=== PATIENT | male | born 1965 | race Caucasian/White ===

== ENCOUNTER 2019-12-21 05:23 | Emergency (ER) | payer SELFPAY ==
--- NOTE | 2019-12-21 05:36 | ED.SOB ---
HPI - SOB/Dyspnea General Chief Complaint: Dyspnea Stated Complaint: SOB Time Seen by Provider: 12/21/19 05:35 Source: patient Mode of arrival: ambulatory Limitations: other (vague historian) History of Present Illness MD elicited complaint: shortness of breath Onset (ago): day(s) (2) Context: other (states he is upset with his , having coughing fit, just had test at [facility] for COVID still pending) Timing: intermittent Severity: mild Exacerbating factors: exertion Relieving factors: nothing Associated symptoms: cough and other (fatigue) Treatment prior to arrival: none Related Data Previous Rx's Medication Instructions Recorded azithromycin See Rx Instructions .ROUTE 12/21/19 .COMPLEX #6 tab Allergies Allergy/AdvReac Type Severity Reaction Status Date / Time lactose [Lactose] AdvReac Mild UPSET Unverified 11/08/19 15:10 STOMACH Review of Systems Review of Systems: Constitutional : No Fever, No Chills ENT/Mouth : No sore throat, No Rhinorrhea, No Swallowing Difficulty Eyes: No Eye Pain, No Swelling, No Redness Cardiovascular : No Chest Pain, positive SOB, No Orthopnea, no Edema Respiratory : pos Cough, No Sputum, No Wheezing, positive dyspnea Gastrointestinal : No Nausea, No Vomiting, No Diarrhea, No abdominal Pain, No Hematochezia, No Melena Genitourinary : No Dysuria, No Urinary Frequency, No Hematuria Musculoskeletal : No joint pain, No Myalgias Skin : No Skin Lesions, No rash Neuro : No Weakness, No Numbness, No Dizziness, No Headache Psych : No Anxiety/Panic, No Depression Heme/Lymph: No Bruising, No Lymphadenopathy Endocrine : No Polyuria, No Polydipsia All other systems reviewed and are negative [facility] Past Medical History Medical History No active medical problems Social History Social History (Updated 12/21/19 @ 05:39 by Jannie Flowers DO) Alcohol intake: never Smoking Status: Never smoker Advance Directives: No Advance Directives Information Provided: No Physical Exam Vital Signs: Vital Signs: Vital Signs Temp Pulse Resp BP Pulse Ox 12/21/19 06:59 95 12/21/19 05:37 99.0 F 106 H 22 H 124/100 H 95 Body Mass Index 34.0 Appearance: Alert. Oriented X3. No acute distress. Anxious rocking back and forth, poor eye contact Eyes: Pupils equal, round and reactive to light. ENT: Pharynx normal. Neck: Normal inspection. Neck supple. CVS: Normal heart rate and rhythm. Pulses normal. Respiratory: No respiratory distress. Breath sounds normal. Dry intermittent cough Abdomen: Soft and nontender. Skin: Skin warm and dry. Normal skin color. Normal skin turgor. Extremities: No lower extremity edema. No calf ttp Neuro: Oriented X 3. No motor deficit. No sensory deficit. Course Course Course Narrative: no hypoxia, no resp distress likely COVID given labs and CXR, has INH in hand, 95% on RA MDM - SOB/Dyspnea MDM Narrative Medical decision making narrative: 54 yo male with cough x 2 days states he is upset with his who wants him to have COVID so he can't be in the house, c/o dyspnea x 2 days, at this time will need EKG, CXR, COVID swab, no chest pain, no edema, very limited exam, states he is anxious as well due to the argument he had [employer]. Lab Data Result diagrams: 12/21/19 05:54 12/21/19 05:54 Labs: Lab Results 12/21/19 12/21/19 12/21/19 Range/Units 05:54 05:54 05:54 WBC 3.7 L (4.8-10.8) X10*3/uL RBC 4.77 (4.60-5.80) X10*6/uL Hgb 14.6 (14.0-18.0) g/dl Hct 43.1 (42-52) % MCV 90.4 (80-98) fL MCH 30.6 (27.0-33.0) pg MCHC 33.9 (31.0-36.0) g/dl RDW 11.3 (11.0-16.0) % Plt Count 320 (160-400) X10*3/uL MPV 9.7 (9.4-12.4) fL Immature Gran % (Auto) 0.3 (0.0-0.4) % Neut % (Auto) 62.4 (45-73) % Lymph % (Auto) 27.2 (20-40) % [place] % (Auto) 9.8 (2-11) % Eos % (Auto) 0.3 (0-4) % Baso % (Auto) 0.0 (0-2) % Lymph # (Auto) 1.0 L (1.2-4.9) X10*3/uL [place] # (Auto) 0.4 (0.1-1.2) X10*3/uL Eos # (Auto) 0.0 (0.0-0.4) X10*3/uL Baso # (Auto) 0.0 (0.0-0.2) X10*3/uL Abs Immat Gran (auto) 0.01 (0.00-0.03) X10*3/uL Absolute Neuts (auto) 2.3 (2.0-8.3) X10*3/uL Absolute Nucleated RBC 0.000 (0.0-0.012) X10*3/uL Nucleated RBC % (auto) 0.0 (0.0-0.2) /100WBC Hold Blue Top SEE NOTE Sodium 134 L (135-145) mmol/L Potassium 3.9 (3.3-5.1) mmol/l Chloride 99 (96-108) mmol/L Carbon Dioxide 24 (22-29) mmol/L Anion Gap 15 (12-20) BUN 5 L (9-16) mg/dL Creatinine 0.78 (0.5-1.4) mg/dL Estim Creat Clear Calc 130.3 Estimated GFR > 60 Random Glucose 296 H (60-115) mg/dL Calcium 8.4 (8.4-10.2) mg/dL Troponin I High Sens (<3.5-35.0) ng/L B-Natriuretic Peptide (<100) pg/mL 12/21/19 Range/Units 05:54 WBC (4.8-10.8) X10*3/uL RBC (4.60-5.80) X10*6/uL Hgb (14.0-18.0) g/dl Hct (42-52) % MCV (80-98) fL MCH (27.0-33.0) pg MCHC (31.0-36.0) g/dl RDW (11.0-16.0) % Plt Count (160-400) X10*3/uL MPV (9.4-12.4) fL Immature Gran % (Auto) (0.0-0.4) % Neut % (Auto) (45-73) % Lymph % (Auto) (20-40) % [place] % (Auto) (2-11) % Eos % (Auto) (0-4) % Baso % (Auto) (0-2) % Lymph # (Auto) (1.2-4.9) X10*3/uL [place] # (Auto) (0.1-1.2) X10*3/uL Eos # (Auto) (0.0-0.4) X10*3/uL Baso # (Auto) (0.0-0.2) X10*3/uL Abs Immat Gran (auto) (0.00-0.03) X10*3/uL Absolute Neuts (auto) (2.0-8.3) X10*3/uL Absolute Nucleated RBC (0.0-0.012) X10*3/uL Nucleated RBC % (auto) (0.0-0.2) /100WBC Hold Blue Top Sodium (135-145) mmol/L Potassium (3.3-5.1) mmol/l Chloride (96-108) mmol/L Carbon Dioxide (22-29) mmol/L Anion Gap (12-20) BUN (9-16) mg/dL Creatinine (0.5-1.4) mg/dL Estim Creat Clear Calc Estimated GFR Random Glucose (60-115) mg/dL Calcium (8.4-10.2) mg/dL Troponin I High Sens < 3.5 (<3.5-35.0) ng/L B-Natriuretic Peptide < 10 (<100) pg/mL ECG Data Attestation: I personally reviewed and interpreted this ECG as follows: ECG interpretation date: 12/21/19 ECG interpretation time: 06:00 Interpretation: Rate:92 Rhythm: NSR [place]: left Normal P waves. Normal LYNDSEY. Normal QRS complex. ST T wave : normal qTC: normal prior studies: no acute ischemia The study has been interpreted contemporaneously by me. . Discharge Plan Discharge Clinical Impression: Viral pneumonia Patient Disposition: Home, Self-Care Instructions: COVID-19 (Coronavirus Disease 2019) (ED) Additional Instructions: if you cannot walk to your bathroom because you're short of breath please return. you can use the inhaler 2 puffs every 4 hours as needed for cough/dyspnea Prescriptions: New azithromycin 500 mg tablet See Rx Instructions .ROUTE .COMPLEX Qty: 6 RF: 0 Referrals: Physician,ED [Physician] - 2 days (if you are short of breath and cannot breathe well please return) Stand Alone Forms: Work/School Release
[2019-12-21 05:37] VITALS: BP 124/100; PULSE 106; RESP 22; TEMP 37.2; O2SAT 95; BMI 34.0
--- NOTE | 2019-12-21 06:02 | XR_ITS ---
EXAMINATION: XR CHEST CLINICAL INFORMATION: Dyspnea COMPARISON: None TECHNIQUE: Frontal view of the chest was obtained. FINDINGS: Cardiac leads overlie the chest. The lungs are well expanded. Diffuse bronchial wall thickening. Minimal peripheral patchy opacity on the right. No pleural effusion or pneumothorax. The cardiomediastinal silhouette is within normal limits. XR/XR chest 1V IMPRESSION: Bronchial wall thickening with peripheral patchy opacity is suspicious for infectious or inflammatory process. Consideration should be given to viral pneumonia.
[2019-12-21 06:05] LABS: Eosinophils Percent Auto 0.3 % (0-4); Hematocrit 43.1 % (42-52); Hemoglobin 14.6 g/dl (14.0-18.0); Imm Gran Abs Auto 0.01 X10*3/uL (0.00-0.03); Imm Gran Pct Auto 0.3 % (0.0-0.4); Lymphocytes Percent Auto 27.2 % (20-40); MANUAL DIFF FLAG NO; Mean Corpuscular HGB Conc 33.9 g/dl (31.0-36.0); Mean Corpuscular Hemoglobin 30.6 pg (27.0-33.0); Mean Corpuscular Volume 90.4 fL (80-98); Mean Platelet Volume 9.7 fL (9.4-12.4); Monocytes Absolute Auto 0.4 X10*3/uL (0.1-1.2); Monocytes Percent Auto 9.8 % (2-11); Neutrophils Absolute Auto 2.3 X10*3/uL (2.0-8.3); Neutrophils Percent Auto 62.4 % (45-73); Platelet Count 320 X10*3/uL (160-400); Red Blood Count 4.77 X10*6/uL (4.60-5.80); Red Cell Distribution Width 11.3 % (11.0-16.0); White Blood Count 3.7 X10*3/uL (4.8-10.8)
[2019-12-21] MEDS: Albuterol Sulfate 90 MCG 8 GM INHALER 2 PUFF INHALE (06:09)
[2019-12-21 06:33] LABS: Anion Gap 15 (12-20); Blood Urea Nitrogen 5 mg/dL (9-16); Calcium 8.4 mg/dL (8.4-10.2); Carbon Dioxide 24 mmol/L (22-29); Chloride 99 mmol/L (96-108); Creatinine Clr Calc Pharmacy 130.3; Estimated Glomerular Filt Rate > 60; Glucose Random 296 mg/dL (60-115); Potassium 3.9 mmol/l (3.3-5.1); Sodium 134 mmol/L (135-145)
[2019-12-21 06:39] LABS: B Type Natriuretic Peptide < 10 pg/mL (<100); Troponin-I High Sensitivity < 3.5 ng/L (<3.5-35.0)
--- NOTE | 2019-12-21 06:48 | PC.NURSE ---
PT RESTING IN BED AWAITING RESULTS. NO DISTRESS NOTED. AWARE OF PLAN OF CARE.
[2019-12-21 06:59] VITALS: O2SAT 95
== END 2019-12-21 08:07 | disposition home or self-care (01) ==
PROVIDERS: Emergency Provider Emergency Medicine
DX: J12.9 Viral pneumonia, unspecified (principal); R06.00 Dyspnea, unspecified; Z20.828 Contact with and (suspected) exposure to other viral communicable diseases
CPT/HCPCS: 36415; 71045; 80048; 83880; 84484; 85025; 99284; U0003